=== PATIENT | male | born 1950 | race Caucasian/White ===

== ENCOUNTER 2017-05-08 13:46 | Inpatient (IN) | payer MEDICARE, BC ==
[~2017-05-08] VITALS: Ht 188 cm; Wt 117.9 kg
--- NOTE | ~2017-05-08 | HP ---
PATIENT: ADAM THOMAS MEDICAL RECORD: [id number] ACCOUNT: [id number] LOCATION:D.MS [facility]4 : 46 ADMISSION DATE: 05/08/17 HISTORY AND PHYSICAL EXAMINATION DATE OF ADMISSION: 05/08/2017 CHIEF COMPLAINT: Abdominal pain. HISTORY OF PRESENT ILLNESS: The patient states that for the past week, he has had lower abdominal discomfort, he has had low-grade fever, he has had chills and sweats. One night, he states he had voided 12 times during the night. States he is feeling somewhat better today. PAST MEDICAL HISTORY: His past history is significant that he has had a history of atrial fibrillation. He has had a history of having hypertension, high blood pressure. FAMILY HISTORY: Brother had hypertension. Nephew with diabetes mellitus. Father had heart disease as well as lung cancer. MEDICATIONS: Include aspirin 81 mg once a day, lisinopril 20/12.5 one p.o. every day, meloxicam 15 mg once a day, KCl 10 mEq 1 p.o. every day, simvastatin 20 mg once a day, sotalol 120 mg p.o. b.i.d., warfarin 5 mg 1 p.o. every day. ALLERGIES: He has no known drug allergies. HABITS: The patient is a nonsmoker and nondrinker. SOCIAL HISTORY: The patient is a 2-year college graduate. He is . He is a CPA. REVIEW OF SYSTEMS: CONSTITUTIONAL: He denies any headaches, seizures, or syncope. Denies change in visual or auditory acuity. PULMONARY: He denies any shortness of breath, cough, congestion, history of TB, asthma or bronchitis. CARDIOVASCULAR: No chest pain, palpitation, PND or orthopnea. GASTROINTESTINAL: No chronic nausea, vomiting, melena or hematochezia. GENITOURINARY: No urgency, frequency, or dysuria. PHYSICAL EXAMINATION: VITAL SIGNS: Today, the patient's weight is 264, his blood pressure is 102/56, his pulse is 72, and his respirations are 16. He is afebrile. HEENT: Head is normocephalic. No lesions. Ears: TMs clear. Eyes: Pupils equal, round and reactive to light. His extraocular movements are intact. His nasal cavity, oral cavity, and oropharynx are clear. NECK: Supple. There is no adenopathy. HEART: Has a regular rate and rhythm without murmurs, gallops or rubs. LUNGS: Clear. ABDOMEN: Soft. The patient does have some right lower quadrant tenderness. LABORATORY DATA: He had a urinalysis, which was unremarkable today. White count is also unremarkable. The patient was sent for CT of the abdomen and pelvis, which did show acute appendicitis with perforation. HISTORY AND PHYSICAL [id number] ADAM THOMAS ASSESSMENT: Abdominal pain felt to be secondary to acute appendicitis with perforation, history of atrial fibrillation, hypertension, and hyperlipidemia. PLAN: The patient is admitted. Surgery consultation will be obtained. He will be placed on Invanz 1 gram q.24 hours. We will hold his Coumadin. Continue to evaluate. TRANSINT:[id number] Voice Confirmation ID: [id number] DOCUMENT ID: [id number] DUARTE CASTAÑEDA MD CC: [id number] DICTATION DATE: 05/08/171752 SENIOR DENTIST: 05/08/[address] [facility] [address] [place] [address]
--- NOTE | ~2017-05-08 | PN ---
PATIENT:ADAM THOMAS MEDICAL RECORD: [id number] LOCATION:D.MS [facility] ADMISSION DATE: 05/08/17 PROGRESS NOTE DATE OF SERVICE: 05/10/2017 Progress Note Addendum CHIEF COMPLAINT: Better. The patient is going to have an abscessogram tomorrow. He is tolerating clear liquid diet. He is having only minor pain around the drain injury site. Dr. Bazzi has made recommendations. Palpation aggravates. Nothing alleviates. Symptoms are mild. This is a progress note addendum. For the typed portion of the progress note, please see the chart. This would include the past medical and surgical history, allergies, family history as well as current medications. REVIEW OF SYSTEMS: No nausea, no vomiting, no fever, no chills, no chest pain, no shortness of breath. PHYSICAL EXAMINATION: GENERAL: The patient does not appear acutely ill. He does not appear chronically ill. VITAL SIGNS: Reviewed. HEAD: External ears appear normal. EYES: Extraocular movements are intact. NECK: Trachea is midline. CHEST: No intercostal retractions. PULMONARY: Nonlabored, no stridor. ABDOMEN: Tenderness only at the drain entry site. INTEGUMENT: No rash. PSYCHIATRIC: Normal affect. NEUROLOGIC: Nonfocal, no lethargy. The patient answers questions appropriately, moves all extremities well. BACK: No thoracic kyphosis. LYMPHATIC: No lymphangitic streaking of the exposed extremities. IMPRESSION: Acute appendicitis with perforation and abscess. PLAN: Continued drainage through the CT-guided drain, continue with IV antibiotics. TRANSINT:[id number] Voice Confirmation ID: [id number] DOCUMENT ID: [id number] PROGRESS NOTE [id number] ADAM THOMAS ROBERT MD CC: [id number] DICTATION DATE: 05/11/171733 RETRIMMER: 05/11/17 2316 ADM IN [facility] [address] [place] [address]
--- NOTE | ~2017-05-08 | CN ---
PATIENT NAME:ADAM THOMAS MEDICAL RECORD: [id number] : 46 LOCATION:D.MS [facility]2204 ADMIT DATE: 05/08/17 ACCOUNT: [id number] CONSULTING PHYSICIAN: ERIKA CAMERON MD REFERRING PHYSICIAN: DUARTE CASTAÑEDA MD DATE OF CONSULTATION: 05/08/2017 CHIEF COMPLAINT: Pain. I have personally reviewed this patient's CT images. I have seen and examined the patient. I have discussed this patient with the patient's primary care physician, Dr. Castañeda. The patient states that he started having abdominal pain about a week ago. He states it is very, very mild. On his CT scan, he has what appears to be a phlegmon with an abscess. This is consistent with acute appendicitis. The current treatment of this is to drain the acute appendicitis; keep the patient on oral or IV antibiotics; and then sometime in the future, once the inflammation has decreased, go in either laparoscopically or through an open procedure and remove the diseased appendix. Palpation aggravates. Nothing alleviates. Symptoms are nonradiating. They are mild in intensity. They are not worsening. This is a consultation note addendum. For the typed portion of the consult note, please see the chart. This will include the past medical and surgical history, current medications, allergies, social history, and family history. REVIEW OF SYSTEMS: No nausea. No vomiting. No fever. No chills. Positive for abdominal pain. No chest pain. No shortness of breath. Review of systems is negative other than as is described above. PHYSICAL EXAMINATION: GENERAL: The patient does not appear acutely ill. He does not appear chronically ill. VITAL SIGNS: Reviewed. HEAD: External ears appear normal. EYES: Extraocular movements are intact. NECK: Trachea is midline. CHEST: No intercostal retractions. PULMONARY: Nonlabored. No stridor. ABDOMEN: Right lower quadrant tenderness with guarding over McBurney point. No peritoneal signs. No Rovsing sign. No peritonitis to percussion. EXTREMITIES: No peripheral cyanosis. INTEGUMENT: No rash. No ulcerations. PSYCHIATRIC: Normal affect. NEUROLOGIC: Nonfocal. No lethargy. The patient answers questions appropriately and moves all extremities well. BACK: No thoracic kyphosis. LYMPHATICS: No lymphangitic streaking of the exposed extremities. IMPRESSION: Perforated appendicitis with abscess and phlegmon. PLAN: Interventional radiology-guided drain tomorrow. PICC line. Consult Dr. Bazzi. Start IV antibiotics. Blood cultures times 2. Also IV narcotic CONSULT REPORT [id number] ADAM THOMAS. TRANSINT:[id number] Voice Confirmation ID: [id number] DOCUMENT ID: [id number] ERIKA CAMERON MD CC: [id number] DICTATION DATE: 05/09/171922 TECHNICAL OPERATIONS MANAGER: 05/09/172021 ADM IN [place] [id number] [place] [id number]
--- NOTE | ~2017-05-08 | HEMODYNAMI ---
PATIENT:ADMA THOMAS MEDICAL RECORD: [id number] : 46 LOCATION:Ian.IN [facility]4 ADMISSION DATE: 05/08/17 Generatedon:05/11/201714:40 Patient name: ADAM THOMAS Patient #: [id number] SSN: : 1 09/11/1949 Date of study: 05/11/2017 Page: Of Hemodynamic Procedure Report Patient Data Patient Demographics Procedure consent was obtained First Name: ADAM Gender: Male Last Name: MARTHA : 1950 Patient #: [id number] Age: 66 year(s) Race: Unknown Additional ID: [id number] Contact details Address: [address] [place] [address] [address] State: [place] City: [facility] Zip code: [address] Admission Admission Data Admission Date: 05/08/2017 Admission Time: 16:54 Room #: D.2204 Weight (lbs.): 259 Weight (kg.): 117.48 Procedure Procedure Types Cath Procedure Peripheral Cath Diagnostic Procedure Cath Peripheral Procedure Description Procedure Date Procedure Date: 05/11/2017 Procedure Start Time: 14:32 Procedure Staff Name Function Husam Botello MD Performing Physician Jordin Cartagena RT Scrub Mindy Mccray RN Nurse Charo Colon RT Ship Boss Charo Colon RT Monitor Procedure Data Cath Procedure Fluoroscopy Diagnostic fluoroscopy Total fluoroscopy Time: 0.8 time: 0.8 min min Diagnostic fluoroscopy Total fluoroscopy dose: 81 dose: 81 mGy mGy Contrast Material Contrast Material Type Amount (ml) Isovue 300 15 Procedure Medications Medication Administration Route Dosage Lidocaine 1% added to field 20 Heparin Flush Bag 1 bags (1000units/500ml NS) Hemodynamics Rest Pre Cath Intra NCS Post Cath Medications Time Medication Route Dose Verified Delivered Reason Notes Effe ctiveness by by 14:22:42 Lidocaine 1% added 20ml Mindy Husam for local to vial Mahendra Botello MD anesthetic field RN 14:23:17 Heparin Flush 1 Mindy Mindy used for Bag bags Mahendra Mccray sliver lapper (1000units/500ml RN NS) Procedure Log Time Note 14:15:54 Patient Weight : 259 lbs 14:18:48 Time tracking: Regular hours 14:19:38 Signed procedure consent form obtained from patient. 14:22:42 Lidocaine 1% 20ml vial added to field was administered by Husam Botello MD; for local anesthetic; 14:23:17 Heparin Flush Bag (1000units/500ml NS) 1 bags was administered by Mindy Mccray RN; used for procedure; 14:23:23 Use device set IR Diagnostic 14:23:25 Sterile Angiographic Pack opened to sterile field. 14:23:28 Bag Decanter opened to sterile field. 14:31:24 Physician arrived 14:31:51 --------ALL STOP TIME OUT------ 14:31:52 Final Timeout: patient, procedure, and site verified with staff and physician. All members of the team are in agreement. 14:32:10 Procedure started. 14:32:11 Full Disclosure recording started 14:32:26 Local anesthetic to Abdominal area with Lidocaine 1% by Husam Botello MD.INITIAL ACCESS ONLY 14:33:00 Terumo ANGLE 260cm glide wire opened to sterile field. 14:35:30 STOPCOCK 3-WAY LARGE BORE opened to sterile field. 14:38:21 BAG, DRAINAGE EMPTY 600ML W/TARA opened to sterile field. 14:38:40 Procedure ended.(Physican Out) 14:38:58 Fluoroscopy time 00.80 minutes. 14:39:04 Fluoroscopy dose: 81 mGy 14:39:04 Flurop Dose total: 81 14:39:28 Contrast amount:Isovue 300 15ml. 14:39:31 Sharps counted by scrub and verified by R.N. 14:39:33 Procedure and supply charges have been captured, reviewed, submitted and are correct. Device Usage Item Name Manufacture Quantity Catalog Hospital Part Current Minimal Lot# / Number Charge Number Stock Stock Serial# Code Sterile Cardinal 1 [id number] 5 Angiographic Health Pack Bag Decanter Microtek 1 [id number] 5 [employer] Terumo ANGLE Terumo 1 [id number] 5 260cm glide wire STOPCOCK [facility] 1 [id number] [id number] [id number] 5 [id number] 3-WAY LARGE BORE BAG, Merit 1 [id number] 604656 5 DRAINAGE Medical EMPTY 600ML W/TARA Signature Audit [place] Stage Time Signature Unsigned Intra-Procedure 05/11/2017 Charo Colon 2:40:48 PM RT(R) Signatures Monitor : Charo Colon RT Signature : Date : Time : [facility] [address] [place] [address]
--- NOTE | ~2017-05-08 | PN ---
PATIENT:ADAM THOMAS MEDICAL RECORD: [id number] LOCATION:D.MS [facility] ADMISSION DATE: 05/08/17 PROGRESS NOTE DATE OF SERVICE: 05/09/2017 Progress Note Addendum CHIEF COMPLAINT: Nausea. HISTORY OF PRESENT ILLNESS: The patient had an episode of nausea and vomiting. He is on clear liquids. He has had a CT-guided drain placed today. There was the production of some pus. He is actually having more abdominal pain. He has been febrile as well. Palpation aggravates. Nothing alleviates. Symptoms are mild to moderate of intensity. This is a progress note addendum. For the typed portion of the progress note, which would include the past medical and surgical history, allergies, social history, family history and current medications, please see the chart. REVIEW OF SYSTEMS: Positive for abdominal pain. Positive nausea and vomiting. Positive for fever. No chills, no shortness of breath, no chest pain. Review of systems is negative other than as is described above. PHYSICAL EXAMINATION: GENERAL: The patient does not appear acutely ill. He does not appear chronically ill. VITAL SIGNS: Reviewed. EARS: External ears appear normal. EYES: Extraocular movements are intact. NECK: Trachea is midline. CHEST: No intercostal retractions. PULMONARY: Nonlabored, no stridor. ABDOMEN: Right lower quadrant tenderness with guarding. EXTREMITIES: No peripheral cyanosis. INTEGUMENT: No rash, no ulcerations. PSYCHIATRIC: Normal affect. NEUROLOGIC: Nonfocal, no lethargy. The patient answers questions appropriately, moves all extremities well. BACK: No thoracic kyphosis. LYMPHATIC: No lymphangitic streaking of the exposed extremities. IMPRESSION: Acute appendicitis with perforation. PLAN: I have read Dr. Bazzi's notes. We are going to hold off on a midline or a PICC line for now. The patient may be able to be converted to oral antibiotics. He has had an episode of nausea and vomiting. He states that the feeling of being nauseated went away, almost immediately after he vomited. From my standpoint once the patient is afebrile and can tolerate a diet as well as oral antibiotics, he can be dismissed home. TRANSINT:[id number] Voice Confirmation ID: [id number] DOCUMENT ID: [id number] PROGRESS NOTE [id number] ADAM THOMAS ROBERT MD CC: [id number] DICTATION DATE: 05/09/171925 DIRECTOR OF GRANTS: 05/10/17 0236 ADM IN [facility] [address] [facility]
--- NOTE | ~2017-05-08 | PN ---
PATIENT:KALEB THOMAS MEDICAL RECORD: [id number] LOCATION:D.MS [facility] ADMISSION DATE: 05/08/17 PROGRESS NOTE DATE OF SERVICE: 05/11/2017 Progress Note Addendum CHIEF COMPLAINT: Fistula. I was called by Dr. Botello, the interventional radiologist. I was told that during the abscessogram, there was some dye that flowed into the small bowel. This would therefore demonstrate a fistula. We have gone over the CT images. This does not appear to be iatrogenic. It appears that the patient likely does not have acute appendicitis with perforation and phlegmon and an abscess, but instead has Crohn's disease. He is certainly not at an age where a person would normally develop Crohn's disease. I have explained to him the pathophysiology of Crohn's disease as well as options including the medical option, maintaining n.p.o., total parenteral nutrition, octreotide, and IV antibiotics. Alternatively, we could send him home this as this is a low output fistula and there is no bowel or enteral contents within the drainage on oral antibiotics. I will then plan on performing a right hemicolectomy hopefully laparoscopically, in about 4 weeks. I have discussed this case with Dr. Baugh who is low emission automobile designer for Dr. Kay. I have also discussed this case with Dr. Bazzi in the interventional radiologist, Dr. Botello. I have drawn Kaleb some pictures. I spent a good bit of time answering his questions. This is a progress note addendum. For the typed portion of the progress note including the past medical and surgical history, allergies, social history as well as current medications, please see the chart. REVIEW OF SYSTEMS: No nausea, no vomiting, no fever, no chills. Positive for abdominal pain, but only at the catheter entry site. PHYSICAL EXAMINATION: GENERAL: The patient does not appear acutely ill. He does not appear chronically ill. VITAL SIGNS: Reviewed. HEAD: External ears appear normal. EYES: Extraocular movements are intact. NECK: Trachea is midline. CHEST: No intercostal retractions. PULMONARY: Nonlabored, no stridor. ABDOMEN: No peritonitis with movement. INTEGUMENT: No rash. PSYCHIATRIC: Normal affect. NEUROLOGIC: Nonfocal, no lethargy. The patient answers questions appropriately, moves all extremities well. BACK: No thoracic kyphosis. LYMPHATIC: No lymphangitic streaking of the exposed extremities. 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 PROGRESS NOTE [id number] KALEB THOMAS PLAN: A 10 days to 2 weeks of oral antibiotics. Narcotic analgesia. Low roughage diet. I have explained this to the patient. I have told him what foods I want him to avoid. Then, in the interval right colectomy, hopefully done laparoscopically, in about 4 weeks. TRANSINT:[id number] Voice Confirmation ID: [id number] DOCUMENT ID: [id number] ERIKA CAMERON MD CC: [id number] DICTATION DATE: 05/11/17 173 PERSONAL INJURY ATTORNEY: 05/11/17 3937 ADM IN [facility] [address] [place] [id number]
[~2017-05-08 13:46] MED LIST: BAYER CHEWABLE81 MG PO; BENICAR HCT 20-1 TA1 PO; BETAPACE 80 MG80 MG PO; COUMADIN5 MG PO; COUMADIN7.5 MG PO; FISH OIL 1,0001 CA1 PO; KLOR-CON 1010 MEQ PO; MULTIPLE VITAMI1 TA1 PO; VITAMIN E200 UNI2 PO; ZOCOR20 MG PO
--- NOTE | 2017-05-08 18:00 | NUR ---
PATIENT TO ROOM AT THIS TIME. IV INTACT. STATED HE WAS OVER AT DR. CASTAÑEDA OFFICE AND SENT HERE TO DO CT SCAN. IV WAS PLACED AND THEN SENT BACK TO [facility] OFFICE THEN SENT OVER HERE. ORIENTED PATIENT TO ROOM AND CALL LIGHT. CALL LIGHT WITHIN REACH. AT THIS TIME. WILL CONTINUE TO MONITOR.
[2017-05-08 18:09] LABS: BASOPHILS 0.3 % (0-2); EOSINOPHILS 0.6 % (0-7); HEMATOCRIT 40.5 % (42.0-54.0); HEMOGLOBIN 13.9 g/dL (13.5-17.5); IMMATURE GRANULOCYTES 0.4 % (0-5); MCH 29.6 pg (26.0-34.0); MCHC 34.3 g/dL (31.0-37.0); MCV 86.4 fL (80.0-100.0); MEAN PLATELET VOLUME 11.7 fL (7.4-10.4); MONOCYTES 16.2 % (2-11); NEUTROPHILS 68.5 % (40-80); RBC 4.69 10x6/uL (4.20-6.10); RDW 13.6 % (11.5-14.5); WBC 9.1 10x3/uL (4.8-10.8)
[2017-05-08 18:16] LABS: INR 1.78 (0.85-1.17); PROTIME 20.7 SECONDS (11.6-15.0)
[2017-05-08 18:21] LABS: CALCIUM 8.4 mg/dL (8.5-10.1); CARBON DIOXIDE 26.9 mmol/L (21.0-32.0); CREATININE - SERUM 1.2 mg/dL (0.6-1.3); POTASSIUM - SERUM 3.9 mmol/L (3.5-5.1)
[2017-05-08 18:46] LABS: PLATELET COUNT 175 10x3/uL (130-400)
[2017-05-08 19:00] VITALS: BP 143/93
--- NOTE | 2017-05-08 19:25 | NUR ---
RECIEVED SHIFT REPORT. PT IS LYING IN BED. ALERT AND ORIENTED AND ABLE TO VERBALIZE NEEDS. IV IS PATENT AND SALINE LOC AT THIS TIME. PT IS AMBULATORY BUT WAS INSTRUCTED TO CALL FOR ANY ASSISTANCE NEEDED. PT DENIES ANY PAIN AT THIS TIME. NO NEEDS ARE VERBALIZED AT THIS TIME. WILL CONTINUE TO MONITOR. SIDE RAILS ARE UP X 2. BED IS IN LOWEST POSITION. CALL LIGHT IS WITHIN REACH.
--- NOTE | 2017-05-08 21:17 | NUR ---
ADMIT ASSESSMENT COMPLETED. FLUIDS HOOKED UP PER ORDER. NIGHT MEDS GIVEN WITH NO PROBLEMS. PRN TYLENOL ADMINISTERED PER ORDER FOR MPCY=202.3. NO NEEDS ARE VOICED. WILL MONITOR. SIDE RAILS X 2. BED LOW. CALL LIGHT IN REACH.
[2017-05-08 23:01] VITALS: BP 143/93; BMI 33.4
[2017-05-09] VITALS (12 sets, daily range): BP systolic 128–148; BP diastolic 66–92; Ht 188 cm; Wt 117.9 kg
--- NOTE | 2017-05-09 04:36 | NUR ---
ADMINISTERED PRN TYLENOL FOR FEVER OF 89.
[2017-05-09 05:33] LABS: APPEARANCE CLEAR (CLEAR); COLOR YELLOW (YELLOW); GLUCOSE NEGATIVE (NEGATIVE); KETONE SMALL mg/dL (NEGATIVE); LEUKOCYTE ESTERASE NEGATIVE (NEGATIVE); NITRITE NEGATIVE (NEGATIVE); PROTEIN TRACE mg/dL (NEGATIVE); SPECIFIC GRAVITY 1.015 (1.005-1.020); UROBILINOGEN NORMAL (NORMAL)
[2017-05-09 05:34] LABS: BILIRUBIN NEGATIVE (NEGATIVE)
[2017-05-09 05:35] LABS: BACTERIA MODERATE /hpf (NONE SEEN); EPITHELIAL CELLS 0-5 /hpf (0-5); MUCUS <1+ /lpf (NONE SEEN); RED CELLS - URINE 0-5 /hpf (0-5); WHITE CELLS - URINE 0-5 /hpf (0-5)
[2017-05-09 05:37] LABS: BASOPHILS 0.3 % (0-2); EOSINOPHILS 0.4 % (0-7); HEMOGLOBIN 13.8 g/dL (13.5-17.5); IMMATURE GRANULOCYTES 0.2 % (0-5); LYMPHOCYTES 10.2 % (15-50); MCH 29.2 pg (26.0-34.0); MCHC 33.7 g/dL (31.0-37.0); MCV 86.7 fL (80.0-100.0); MEAN PLATELET VOLUME 12.1 fL (7.4-10.4); MONOCYTES 19.1 % (2-11); NEUTROPHILS 69.8 % (40-80); PLATELET COUNT 164 10x3/uL (130-400); RBC 4.73 10x6/uL (4.20-6.10); RDW 13.4 % (11.5-14.5); WBC 9.4 10x3/uL (4.8-10.8)
[2017-05-09 06:04] LABS: ANION GAP 14.3 mmol/L (8-16); CALCIUM 8.9 mg/dL (8.5-10.1); CARBON DIOXIDE 25.2 mmol/L (21.0-32.0); CREATININE - SERUM 1.1 mg/dL (0.6-1.3); POTASSIUM - SERUM 3.5 mmol/L (3.5-5.1)
--- NOTE | 2017-05-09 07:05 | NUR ---
RECIEVED REPORT, ASSUMED CARE OF PT. NO SIGNS OF ACUTE DISTRESS. BED IN LOWEST POSITION, SIDE RAILS UP X 2, CALL LIGHT WITHIN REACH.
[2017-05-09 09:10] LABS: APTT 34.3 SECONDS (22.8-39.4); INR 1.84 (0.85-1.17); PROTIME 21.3 SECONDS (11.6-15.0)
--- NOTE | 2017-05-09 11:19 | NUR ---
Patient Name: ADAM THOMAS Admission Status: Elective Accout number: [id number] Admission Date: 05-08-2017 : 1950 Admission Diagnosis: Attending: DUARTE CASTAÑEDA Current LOS: 1 Anticipated DC Date: Planned Disposition: Home Primary Insurance: MEDICARE A & B Discharge Planning Comments: CM met with patient to assess discharge planning needs. Patient lives independently at home by himself and that is where he plans to return. Patient stated that he plans on driving himself home at time of discharge. Patient does have a son (Duarte). Patient denies any HH or DME use, but if he needs HH he would like to use [facility], AMALIA signed. CM will continue to follow and assist with discharge planning needs PCP: Rahul Bledsoe (SON) [phone] [facility] [place] and Phd Internship: Dana Horne * Is the patient Alert and Oriented? Yes 0 * How many steps to enter\exit or inside your home? 0 0 * PCP Rahul 0 * Pharmacy [facility] on [address] 0 * Preadmission Environment Home Alone 0 * ADLs Independent 0 * Equipment None 0 * List name and contact numbers for known caregivers / representatives who currently or will assist patient after discharge: Duarte (son) [phone] * Community resources currently utilized None 0 * Additional services required to return to the preadmission environment? No 0 * Can the patient safely return to the preadmission environment? Yes 0 * Has this patient been hospitalized within the prior 30 days at any hospital? No 0 Grand Total: 0
--- NOTE | 2017-05-09 12:50 | NUR ---
PT TRANSPORTED TO IR FOR PROCEDURE.
--- NOTE | 2017-05-09 13:55 | NUR ---
PT RETURNED TO FLOOR FROM PERITONEAL DRAIN, RLQ BILIBAG IN PLACE, DRSG C/D/I. VSS. NO COMPLAINTS AT THIS TIME. BED IN LOWEST POSITION, SIDE RAILS UP X 2, CALL LIGHT WITHIN REACH.
--- NOTE | 2017-05-09 19:07 | NUR ---
PT IS LYING ON RT SIDE, EYES CLOSED EVEN RISE AND FALL OF CHEST. NO SIGNS OF DISTRESS, BED IN LOW POSITION CALL LIGHT IN REACH CONTINUE WITH CARE PLAN
--- NOTE | 2017-05-09 19:58 | NUR ---
PT RESTING IN BED, NO COMPLAINTS AT THIS TIME. BED IN LOWEST POSITION, SIDE RAILS UP X 2, CALL LIGHT WITHIN REACH.
--- NOTE | 2017-05-09 20:22 | NUR ---
SUPERVISOR PHOTOCOMPOSITION CAME AND REPORTED PT TEMP IS 102.2, GAVE PT 650MG OF TYLENOL, PT STATED FELT FINE, COVERED PT WITH SHEET, WILL REASSESS TEMP IN 30MINS
--- NOTE | 2017-05-09 21:39 | NUR ---
PT TEMP IS DOWN TO 98 WILL CONTINUE TO MONITOR PT THROUGH OUT THE NIGHT
[2017-05-10 04:00] VITALS: BP 131/77
[2017-05-10 05:11] LABS: BASOPHILS 0.2 % (0-2); EOSINOPHILS 0.1 % (0-7); HEMATOCRIT 38.4 % (42.0-54.0); HEMOGLOBIN 13.1 g/dL (13.5-17.5); IMMATURE GRANULOCYTES 0.2 % (0-5); LYMPHOCYTES 11.6 % (15-50); MCH 29.4 pg (26.0-34.0); MCHC 34.1 g/dL (31.0-37.0); MCV 86.1 fL (80.0-100.0); MEAN PLATELET VOLUME 11.6 fL (7.4-10.4); MONOCYTES 13.6 % (2-11); NEUTROPHILS 74.3 % (40-80); PLATELET COUNT 186 10x3/uL (130-400); RBC 4.46 10x6/uL (4.20-6.10); RDW 13.4 % (11.5-14.5)
[2017-05-10 05:21] LABS: INR 2.35 (0.85-1.17); PROTIME 25.8 SECONDS (11.6-15.0)
[2017-05-10 05:29] LABS: CALCIUM 8.2 mg/dL (8.5-10.1); CARBON DIOXIDE 28.6 mmol/L (21.0-32.0); CREATININE - SERUM 1.1 mg/dL (0.6-1.3); POTASSIUM - SERUM 3.6 mmol/L (3.5-5.1)
--- NOTE | 2017-05-10 05:39 | NUR ---
ASSESSED, PT IS AWAKE AND HE IS UNABLE TO GET HIS TV TO COME ON. WILL PUT IN A WORK ORDER. RESPIRATIONS EVEN AND UNLABORED, NO DISTRESS NOTED. THE BED IS LOW, RAILS UP X'S 2 WITH THE CALL LIGHT AT HAND.
--- NOTE | 2017-05-10 07:05 | NUR ---
REPORT RECIVED, ASSUMED CARE OF PT. RESTING, EASILY AROUSED. NO SIGNS OF ACUTE DISTRESS. BED IN LOWEST POSITION, SIDE RAILS UP X 2, CALL LIGHT WITHIN REACH.
--- NOTE | 2017-05-10 09:00 | NUR ---
PT ACCIDENTALLY PULLED L AC IV OUT. BLEED CONTROL, BANDAGE APPLIED. IV RE-SITED TO L FOREARM, TOLERATED WITH MINIMAL DISCOMFORT. DRSG APPLIED. FLUIDS INFUSING ORDERED.
[2017-05-10 09:46] VITALS: BP 144/80
[2017-05-10 12:55] VITALS: BP 128/84
[2017-05-10 16:42] VITALS: BP 119/82
--- NOTE | 2017-05-10 19:11 | NUR ---
PT IS SITTING IN BED WATCStowThat TELEVISION, SSTATED ABLE TO EAT NOW WHICH PT IS ON CLEAR LIQUID DIET AND HAD CHICKEN BROTH, NO SIGNS OF DISTRESS BED IN LOW POSITION, CALL LIGHT IN REACH WILL CONTINUE PLAN OF CARE
[2017-05-10 20:20] VITALS: BP 120/82
--- NOTE | 2017-05-10 22:10 | NUR ---
FLUSHED BILI DRAIN, NO COMPLICATIONS, FLUSED EASILY. SITE IS CLEAN, DRY AND INTACT. CONTINUE WITH PLAN OF CARE
[2017-05-11 00:40] VITALS: BP 126/86
--- NOTE | 2017-05-11 01:20 | NUR ---
RESTING QUIETLY WITH EYES CLOSED. NO SIGNS OF DISTRESS NOTED. BED IN LOWEST POSITION, CALL LIGHT IN REACH. BED RAILS UP X'S 2.
[2017-05-11 04:56] VITALS: BP 151/91
[2017-05-11 05:00] LABS: BASOPHILS 0.3 % (0-2); EOSINOPHILS 1.4 % (0-7); HEMATOCRIT 38.5 % (42.0-54.0); HEMOGLOBIN 13.1 g/dL (13.5-17.5); IMMATURE GRANULOCYTES 0.1 % (0-5); LYMPHOCYTES 16.9 % (15-50); MCH 29.1 pg (26.0-34.0); MCV 85.6 fL (80.0-100.0); MEAN PLATELET VOLUME 11.3 fL (7.4-10.4); MONOCYTES 11.8 % (2-11); NEUTROPHILS 69.5 % (40-80); PLATELET COUNT 189 10x3/uL (130-400); RDW 13.4 % (11.5-14.5); WBC 7.3 10x3/uL (4.8-10.8)
[2017-05-11 05:10] LABS: PROTIME 30.5 SECONDS (11.6-15.0)
[2017-05-11 05:12] LABS: INR 2.9 (0.85-1.17)
[2017-05-11 05:15] LABS: CALC OSMOLALITY 281 mosm/kg (275-300); CALCIUM 7.9 mg/dL (8.5-10.1); CARBON DIOXIDE 28.4 mmol/L (21.0-32.0); CHLORIDE - SERUM 104 mmol/L (98-107); GLUCOSE 109 mg/dL (74-106); POTASSIUM - SERUM 3.6 mmol/L (3.5-5.1); SODIUM 140 mmol/L (136-145); UREA NITROGEN 19 mg/dL (7-18); eGFR NON AFRICAN AMERICAN 79 mL/min (90-120)
--- NOTE | 2017-05-11 07:00 | NUR ---
REPORT RECIEVED, ASSUMED CARE OF PT. RESTING, EASILY AROUSED. L FOREARM IV INTACT, PATENT, INFUSING ORDERED, DRSG CLEAN, DRY AND INTACT. RLQ DRAIN WITH BILI BAG IN PLACE. NO COMPLAINTS AT THIS TIME. BED IN LOWEST POSITION, SIDE RAILS UP X 2, CALL LIGHT WITHIN REACH.
[2017-05-11 09:39] VITALS: BP 136/93
--- NOTE | 2017-05-11 10:06 | NUR ---
NUTRITION F/U CHART REVIEWED. PT CURRENTLY NPO FOR PROCEDURE TODAY. WILL PROVIDE DIET WHEN RESUMED. MONITOR PO INTAKE. RD FOLLOWING
[2017-05-11 13:06] VITALS: BP 139/91
--- NOTE | 2017-05-11 14:03 | NUR ---
PT LEFT FLOOR FOR DRAIN CHECK AND POSSIBLE REMOVAL.
[2017-05-11 16:59] VITALS: BP 136/104
[2017-05-11 20:00] VITALS: BP 136/83
--- NOTE | 2017-05-11 21:19 | NUR ---
AWAKE WITH NO COMPLAINTS. IV INFUSING TO LEFT ARM WITHOUT REDNESS OR EDEMA NOTED. ABD SOFT NONDISTENDED WITH BOWEL SOUNDS PRESENT. CL IN REACH.
[2017-05-12 00:08] VITALS: BP 146/98
--- NOTE | 2017-05-12 02:27 | NUR ---
ASSESSED, PT IS ASLEEP WITH EASY RESPIRATIONS AND NO SIGNS OF DISTRESS NOTED. THE BED IS LOW, RAILS UP X'S 2 WITH THE CALL LIGHT AT HAND.
--- NOTE | 2017-05-12 05:40 | NUR ---
RESTING QUIETLY. NO DISTRESS NOTED. CL IN REACH.
--- NOTE | 2017-05-12 07:00 | NUR ---
PT REC'D FROM RACQUEL ROBERTS. PT SITTING UP IN BED WATCHING TV. AAOX4. NO COMPLAINTS OF PAIN. BOWEL SOUNDS ACTIVE X4 QUADS. DRESSING COVERING BILI DRAIN TO RLQ CDI. SCANT AMOUNT OF SEROSANGUINOUS DRAINAGE NOTED TO COLLECTION BAG. PT ASKING WHEN HE WILL GO HOME. STATED THAT I HAD NOT SEEN THE DOCTOR YET THIS MORNING, BUT WHEN I DO I WILL ASK. NO QUESTIONS OR CONCERNS VOICED. PIV TO L FA FREE OF REDNESS AND SWELLING. BED LOW, CALL LIGHT IN REACH, DENIES NEEDS. CPOC.
[2017-05-12 08:03] VITALS: BP 157/97
[2017-05-12] MEDS ORDERED: LEVAQUIN750 MG PO (09:54)
[2017-05-12] MEDS ORDERED: FLAGYL500 MG PO (09:54)
[2017-05-12 12:42] VITALS: BP 137/94
--- NOTE | 2017-05-12 14:01 | NUR ---
DISCHARGE INSTRUCTIONS DISCUSSED WITH PT AT THIS TIME. NO QUESTIONS OR CONCERNS VOICED. BILIARY DRAIN FLUSHED WITH 10CC'S OF SALINE AT THIS TIME. EXPLAINED TO PT HOW TO FLUSH DRAIN AND CHANGE DRESSING IF NEEDED. PT ABLE TO RETURN DEMONSTRATION. PIV TO Marco Antonio NELSON DC'D WITH CATHETER INTACT. PRESSURE AND DRESSING APPLIED. PROVIDED PT WITH LEG STRAP FOR COLLECTION BAG. ESCORTED OUT VIA WC.
== END 2017-05-12 14:08 | disposition home or self-care, planned readmission (81) | DRG 393 ==
LOC: D.CT 13:46 → D.MS 16:54 → D.CT 18:00 → D.MS 05-12 14:08
PROVIDERS: Radiology Diagnostic Radiology; ADMIT Family Medicine
PROC: 0D9W30Z Drainage of Peritoneum with Drainage Device, Percutaneous Approach (ICD-10-PCS; principal; 2017-05-09 13:00)
DX: K63.2 Fistula of intestine (principal); K65.1 Peritoneal abscess; I10 Essential (primary) hypertension; I48.0 Paroxysmal atrial fibrillation; Z79.01 Long term (current) use of anticoagulants

== ENCOUNTER 2017-05-21 10:30 | Inpatient (IN) | payer MEDICARE, BC ==
[~2017-05-21 10:30] MED LIST changes: +FLAGYL500 MG PO; +LEVAQUIN750 MG PO; -VITAMIN E200 UNI2 PO; +VITAMIN E400 UNI2 PO
--- NOTE | 2017-05-21 10:50 | NUR ---
PT RECIEVED TO ROOM 2202 VIA WHEELCHAIR FROM ADMISSIONS VIA DIRECT ADMISSION FROM DR CASTAÑEDA OFFICE FOR COMPLAINTS OF BLOODY STOOLS OVER THE WEEKEND PIV STARTED TO RIGHT FORARM X 1 STICK 20 GA TOLERATED WELL.
[2017-05-21 11:17] VITALS: BP 117/71
--- NOTE | 2017-05-21 11:26 | NUR ---
pt seen and admitted. no complaints present except for passing bloody stools x 3 days. ir drain noted to rlq with dressing intact-bloody fluid noted in bag. states no tenderness or n/v. call light in reach
[2017-05-21 11:38] VITALS: BP 117/71
[2017-05-21 11:39] LABS: BASOPHILS 0.7 % (0-2); EOSINOPHILS 1.1 % (0-7); HEMATOCRIT 30.4 % (42.0-54.0); HEMOGLOBIN 10.1 g/dL (13.5-17.5); IMMATURE GRANULOCYTES 0.3 % (0-5); MCHC 33.2 g/dL (31.0-37.0); MCV 87.4 fL (80.0-100.0); MEAN PLATELET VOLUME 11.9 fL (7.4-10.4); MONOCYTES 4.4 % (2-11); NEUTROPHILS 78.5 % (40-80); PLATELET COUNT 223 10x3/uL (130-400); RBC 3.48 10x6/uL (4.20-6.10); RDW 14.4 % (11.5-14.5); WBC 7.1 10x3/uL (4.8-10.8)
[2017-05-21 11:50] LABS: ANION GAP 10.5 mmol/L (8-16); CALCIUM 8.1 mg/dL (8.5-10.1); CARBON DIOXIDE 26.5 mmol/L (21.0-32.0); CREATININE - SERUM 1.1 mg/dL (0.6-1.3)
[2017-05-21 12:15] LABS: INR 6.16 (0.85-1.17); PROTIME 55.8 SECONDS (11.6-15.0)
--- NOTE | 2017-05-21 13:30 | NUR ---
NEW ORDER RECIEVED FROM DR CASTAÑEDA FOR FFP X 2 UNITS AND 10 VITAMIN K SQ FOR CRITICAL LAB OF INR 6.1 AND PT 55.8
--- NOTE | 2017-05-21 15:38 | NUR ---
PT RETURNED FROM BLEED SCAN EARLIER AND VITAMIN K GIVEN SQ PER ORDER.
[2017-05-21 15:45] VITALS: BP 130/73
--- NOTE | 2017-05-21 16:37 | NUR ---
FFP INFUSING AT THIS TIME TOLERATING WELL
[2017-05-21 17:23] LABS: HEMATOCRIT 26.3 % (42.0-54.0); HEMOGLOBIN 8.8 g/dL (13.5-17.5)
--- NOTE | 2017-05-21 19:20 | NUR ---
RECIEVED SHIFT REPORT. PT IS LYING IN BED. ALERT AND ORIENTED AND ABLE TO VERBALIZE NEEDS. IV IS PATENT AND FLUIDS ARE RUNNING PER ORDER. PT IS AMBULATORY BUT WAS INSTRUCTED TO CALL FOR ANY ASSISTANCE NEEDED. PT DENIES ANY PAIN AT THIS TIME. IR DRAIN TO RIGHT SIDE PATENT AND DRAINING WITH SITE C/D/I. NO NEEDS ARE VERBALIZED AT THIS TIME. WILL CONTINUE TO MONITOR. SIDE RAILS ARE UP X 2. BED IS IN LOWEST POSITION. CALL LIGHT IS WITHIN REACH.
--- NOTE | 2017-05-21 21:45 | NUR ---
SHIFT ASSESSMENT COMPLETED. NIGHT MEDS GIVEN WITH NO PROBLEMS. NO NEEDS ARE VOICED. WILL MONITOR. SIDE RAILS X 2. BED LOW. CALL LIGHT IN REACH.
[2017-05-21 22:22] VITALS: BP 123/04
[2017-05-21 23:44] LABS: HEMATOCRIT 24.5 % (42.0-54.0); HEMOGLOBIN 8.2 g/dL (13.5-17.5)
[2017-05-22] VITALS (17 sets, daily range): BP systolic 96–132; BP diastolic 52–88; BMI 33.4
--- NOTE | 2017-05-22 00:50 | NUR ---
PRBC'S STARTED AT THIS TIME. VSS. WILL MONITOR.
--- NOTE | 2017-05-22 01:05 | NUR ---
PT W/O REACTION AT THIS TIME. VSS. WILL MONITOR.
--- NOTE | 2017-05-22 01:20 | NUR ---
PT STILL W/O REACTION AT THIS TIME. VSS. WILL MONITOR. SIDE RAILS X 2. BED LOW. CALL LIGHT IN REACH.
--- NOTE | 2017-05-22 03:25 | NUR ---
BLOOD FINISHED AND TUBE FLUSHING AT THIS TIME. PT REMAINED W/O REACTION. VSS. WILL MONITOR. SIDE RAILS X 2. BED LOW. CALL LIGHT IN REACH.
[2017-05-22 04:14] LABS: EOSINOPHILS 1.8 % (0-7); HEMATOCRIT 26.6 % (42.0-54.0); IMMATURE GRANULOCYTES 0.4 % (0-5); LYMPHOCYTES 23.1 % (15-50); MCH 29.1 pg (26.0-34.0); MCHC 33.8 g/dL (31.0-37.0); MCV 86.1 fL (80.0-100.0); MEAN PLATELET VOLUME 12.4 fL (7.4-10.4); NEUTROPHILS 65.7 % (40-80); RBC 3.09 10x6/uL (4.20-6.10); RDW 14.8 % (11.5-14.5)
[2017-05-22 04:17] LABS: INR 2.78 (0.85-1.17); PLATELET COUNT 139 10x3/uL (130-400); PROTIME 29.5 SECONDS (11.6-15.0); WBC 5.1 10x3/uL (4.8-10.8)
[2017-05-22 04:18] LABS: CALCIUM 7.4 mg/dL (8.5-10.1); CARBON DIOXIDE 25.9 mmol/L (21.0-32.0); CHLORIDE - SERUM 110 mmol/L (98-107); GLUCOSE 106 mg/dL (74-106); POTASSIUM - SERUM 3.6 mmol/L (3.5-5.1); SODIUM 142 mmol/L (136-145)
[2017-05-22 04:19] LABS: CALC OSMOLALITY 285 mosm/kg (275-300); CREATININE - SERUM 0.8 mg/dL (0.6-1.3); UREA NITROGEN 21 mg/dL (7-18); eGFR NON AFRICAN AMERICAN > 90 mL/min (90-120)
--- NOTE | 2017-05-22 06:51 | HP ---
PATIENT: ADAM THOMAS MEDICAL RECORD: [id number] ACCOUNT: [id number] LOCATION:D.MS [facility] : 48 ADMISSION DATE: 05/21/17 HISTORY AND PHYSICAL EXAMINATION DATE OF ADMISSION: 05/21/2017 CHIEF COMPLAINT: Rectal bleeding. HISTORY OF PRESENT ILLNESS: The patient is a 66-year-old gentleman who had recently been hospitalized for perforated appendix. He had had an abscess drained. He also has a drain in place. He states, on Sunday, he developed bright red blood per rectum. Since that time, he has had numerous stools. He presents complaining of being extremely weak today. PAST MEDICAL HISTORY: His past history is significant in that he has had chronic atrial fibrillation. He has had hypertension. He has had hyperlipidemia, vitamin D deficiency, and history of diverticulitis in the past. FAMILY HISTORY: Brother with history of having high blood pressure. Mother had hyperlipidemia. Father had heart disease, of lung cancer at 73. 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 He has never smoked. Occasional alcoholic beverage. PAST SURGICAL HISTORY: He had had a colonoscopy in 2006 and 2014. ALLERGIES: None. MEDICATIONS: Include aspirin 81 mg once a day, Levaquin 750 mg once a day, lisinopril 20/12.5 one p.o. daily, meloxicam 15 mg once a day, Flagyl 500 mg p.o. t.i.d., KCl 10 mEq one p.o. daily, simvastatin 20 mg once a day, sotalol 120 mg p.o. b.i.d., and warfarin 5 mg p.o. b.i.d. REVIEW OF SYSTEMS: CONSTITUTIONAL: He denies any headache, seizure, or syncope. He denies change in visual or auditory acuity. PULMONARY: He denies any shortness of breath, cough, congestion, or history of bronchitis. CARDIOVASCULAR: He has had no chest pain, palpitation, PND, or orthopnea. GI: No chronic nausea, vomiting, melena, or hematochezia. URINARY: No urinary frequency or dysuria. PHYSICAL EXAMINATION: GENERAL: The patient is very pale in color. VITAL SIGNS: His weight is 258 pounds. His blood pressure is 88/46, pulse 84, respirations 16, and temperature is 98. HEENT: His head is normocephalic. No lesions. Ears; TMs are clear. Eyes; pupils are equal, round, and reactive to light. His extraocular movements are intact. Nasal cavity, oral cavity, and oropharynx clear. NECK: Supple. There is no adenopathy. HEART: Mildly irregular. LUNGS: Clear. ABDOMEN: Soft and nontender. He does have a drain in the right lower quadrant. RECTAL: Shows stool guaiac to be positive. HISTORY AND PHYSICAL [id number] ADAM THOMAS LABORATORY DATA: White count 7.2, hemoglobin 10.6, hematocrit 32.3, and his platelets are 272. ASSESSMENT: Lower GI bleeding, history of atrial fibrillation, history of perforated appendix with abdominal abscess with drain placed. PLAN: The patient is admitted. Serial H&Hs will be obtained. Transfusion as needed. He will have a bleeding scan. He will also have a GI consultation for possible colonoscopy. TRANSINT:[id number] Voice Confirmation ID: [id number] DOCUMENT ID: [id number] DUARTE CASTAÑEDA MD at 0651 CC: [id number] DICTATION DATE: 05/21/17 1136 CLINICAL PHARMACIST: 05/21/17 1212 ADM IN [facility] [address] [place] [address]
--- NOTE | 2017-05-22 07:00 | NUR ---
REPORT RECIEVED ASSUMED CARE. PATIENT IN BED WITH IV INTACT. NO COMPLAINTS. CALL LIGHT WITHIN REACH.
--- NOTE | 2017-05-22 09:15 | NUR ---
PATIENT PREOPED FOR COLONOSCOPY AT THIS TIME. NO COMPLAINTS. IV INTACT. CALL LIGHT WITHIN REACH.
[2017-05-22 12:52] LABS: HEMOGLOBIN 8.7 g/dL (13.5-17.5)
--- NOTE | 2017-05-22 14:00 | NUR ---
PATIENT BACK TO ROOM AT THIS TIME. IV INTACT. NO COMPLAINTS. VS STABLE. SITTING UP WITH EYES OPEN. CALL LIGHT WITHIN REACH.
--- NOTE | 2017-05-22 16:59 | NUR ---
Patient Name: ADAM THOMAS Admission Status: Elective Accout number: [id number] Admission Date: 05-21-2017 : 1950 Admission Diagnosis: Attending: DUARTE CASTAÑEDA Current LOS: 1 Anticipated DC Date: Planned Disposition: Home Primary Insurance: MEDICARE A & B Discharge Planning Comments: CM met with patient to assess discharge planning needs . Patient lives home alone independently where he plans to return to. He states he ahs a son Anthony. He does not have and DME or HH and not sure he will need it when her returns home. CM will continue to follow and assist with discharge planning needs. PCP: Rahul Bledsoe (son) [phone] [facility] [address] [facility] Mechanical Maintenance Technician: Dana Horne * Is the patient Alert and Oriented? Yes 0 * PCP [facility] 0 * Pharmacy [facility] [address] [facility] 0 * Preadmission Environment Home Alone 0 * ADLs Independent 0 * Equipment None 0 * List name and contact numbers for known caregivers / representatives who currently or will assist patient after discharge: Duarte (son) [phone] 0 * Community resources currently utilized None 0 * Additional services required to return to the preadmission environment? Yes 0 * Can the patient safely return to the preadmission environment? Yes 0 * Has this patient been hospitalized within the prior 30 days at any hospital? Yes 0 Grand Total: 0
[2017-05-22 17:11] LABS: HEMATOCRIT 25.9 % (42.0-54.0); HEMOGLOBIN 8.6 g/dL (13.5-17.5)
--- NOTE | 2017-05-22 18:18 | NUR ---
PATIENT IN BED WITH IV INTACT. NO COMPLAINTS OR SIGNS OF DITRESS. TOLERATED CLEARS. NPO P MN. VERBALIZED UNDERSTANDING. CALL LIGHT WITHIN REACH.
--- NOTE | 2017-05-22 19:15 | NUR ---
RECIEVED SHIFT REPORT. PT IS LYING IN BED. ALERT AND ORIENTED AND ABLE TO VERBALIZE NEEDS. IV IS PATENT AND FLUIDS ARE RUNNING PER ORDER. PT DENIES ANY PAIN AT THIS TIME. PT IS AMBULATORY BUT WAS INSTRUCTED TO CALL FOR ANY ASSISTANCE NEEDED. NO NEEDS ARE VERBALIZED AT THIS TIME. WILL CONTINUE TO MONITOR. SIDE RAILS ARE UP X 2. BED IS IN LOWEST POSITION. CALL LIGHT IS WITHIN REACH.
--- NOTE | 2017-05-22 20:41 | NUR ---
CALLED PHARMACY TO QUESTION AND CONFIRM MEDICATION ORDER FOR NEOMYCIN. PHARMACY TO HAVE ME CALL AND CONFIRM WITH MD DIE WELDER. RETURNED CALL FROM RAKESH AND STATED TO ONLY GIVE THE 2100 AND 2200 DOSE AND TO NOT WORRY ABOUT THE ONE FOR 1400 04/23/17. PHARMACY CALLED AND ETHEL TO FIX MEDICATION.
--- NOTE | 2017-05-22 20:55 | NUR ---
SHIFT ASSESSMENT COMPLETED. NIGHT MEDS GIVEN WITH NO PROBLEMS. NO NEEDS VOICED. WILL MONITOR. SIDE RAILS X 2. BED LOW. CALL LIGHT IN REACH.
--- NOTE | 2017-05-22 22:50 | NUR ---
PRBC'S STARTED AT THIS TIME. VSS. WILL MONITOR. SIDE RAILS X 2. BED LOW. CALL LIGHT IN REACH.
--- NOTE | 2017-05-22 23:05 | NUR ---
PT W/O REACTION TO TRANSFUSION. VSS. WILL MONITOR. SIDE RAILS X 2. BED LOW. CALL LIGHT IN REACH.
--- NOTE | 2017-05-22 23:20 | NUR ---
PT STILL W/O REACTION AT THIS TIME. VSS. WILL MONITOR. SIDE RAILS X 2. BED LOW. CALL LIGHT IN REACH.
[2017-05-23] VITALS (13 sets, daily range): BP systolic 106–143; BP diastolic 62–91
--- NOTE | 2017-05-23 01:05 | NUR ---
TRANSFUSION COMPLETE AT THIS TIME AND LINE FLUSHING. PT REMAIND W/O REACTION. VSS. SIDE RAILS X 2. BED LOW. CALL LIGHT IN REACH.
[2017-05-23 04:57] LABS: BASOPHILS 1.4 % (0-2); EOSINOPHILS 1.8 % (0-7); HEMATOCRIT 29.1 % (42.0-54.0); HEMOGLOBIN 9.8 g/dL (13.5-17.5); IMMATURE GRANULOCYTES 0.2 % (0-5); LYMPHOCYTES 20.8 % (15-50); MCH 29.1 pg (26.0-34.0); MCHC 33.7 g/dL (31.0-37.0); MCV 86.4 fL (80.0-100.0); MEAN PLATELET VOLUME 12.2 fL (7.4-10.4); MONOCYTES 12.2 % (2-11); NEUTROPHILS 63.6 % (40-80); PLATELET COUNT 164 10x3/uL (130-400); RBC 3.37 10x6/uL (4.20-6.10); RDW 14.8 % (11.5-14.5); WBC 4.4 10x3/uL (4.8-10.8)
[2017-05-23 05:05] LABS: CALC OSMOLALITY 282 mosm/kg (275-300); CALCIUM 7.4 mg/dL (8.5-10.1); CARBON DIOXIDE 24.6 mmol/L (21.0-32.0); CHLORIDE - SERUM 111 mmol/L (98-107); CREATININE - SERUM 0.8 mg/dL (0.6-1.3); GLUCOSE 120 mg/dL (74-106); POTASSIUM - SERUM 3.3 mmol/L (3.5-5.1); SODIUM 142 mmol/L (136-145); eGFR NON AFRICAN AMERICAN > 90 mL/min (90-120)
[2017-05-23 05:07] LABS: INR 1.64 (0.85-1.17); PROTIME 19.4 SECONDS (11.6-15.0)
[2017-05-23 05:20] LABS: UREA NITROGEN 10 mg/dL (7-18)
--- NOTE | 2017-05-23 09:39 | NUR ---
DRAIN IN PLACE RT. SIDE OF ABDOMEN. REMOVED DURING SURGERY.
--- NOTE | 2017-05-23 10:54 | NUR ---
PT RETURNED FROM SURGERY. AAOX4. RATING CURRENT PAIN IN ABD 5/10. SMALL INCISION SITE TO RLQ. DRESSING CDI. BOWEL SOUNDS HYPOACTIVE X4 QUADS. ABD ROUND AND TENDER TO PALPATION. PIV TO R WRIST RECONNECTED TO IVF. DILAUDID SSIS ARCHITECT INTIATED. PT ABLE TO RETURN DEMONSTRATION. REPORTS A DECREASE IN PAIN TO 4/10 IN ABD. FAMILY AT BEDSIDE. IV ABX STARTED. BED LOW, CALL LIGHT IN REACH, DENIES NEEDS. CPOC.
--- NOTE | 2017-05-23 11:37 | NUR ---
PATIENT IN BED WITH EYES CLOSED RESTING QUIETLY. IV INTACT. CALL LIGHT WITHIN REACH.
[2017-05-23 11:55] LABS: HEMATOCRIT 30.2 % (42.0-54.0); HEMOGLOBIN 10.3 g/dL (13.5-17.5)
[2017-05-23 16:42] LABS: HEMATOCRIT 32.5 % (42.0-54.0); HEMOGLOBIN 11.1 g/dL (13.5-17.5)
--- NOTE | 2017-05-23 22:14 | NUR ---
REC'D LYING IN BED, ALERT AND ORIENTED X4. DENIED PAIN AT THIS TIME. DENIED NEEDS AT THIS TIME. INSTRUCTED TO CALL IF NEEDED ANYTHING, VERBLAIZED UNDERSTANDING. NO DISTRESS NOTED. WILL ADMIN MEDS PRESCRIBED. BED LOW, LOCKED, CALL LIGHT IN REACH. WILL CONT TO MONITOR.
[2017-05-23 22:57] LABS: HEMATOCRIT 28.4 % (42.0-54.0); HEMOGLOBIN 9.6 g/dL (13.5-17.5)
[2017-05-24] VITALS: BP 110/75
--- NOTE | 2017-05-24 02:45 | NUR ---
PRBC'S STARTED AT THIS TIME. VSS. WILL MONITOR. SIDE RAILS X 2. BED LOW. CALL LIGHT IN REACH.
--- NOTE | 2017-05-24 06:00 | NUR ---
BLOOD FINISHED AT 0545. NO DISTRESS NOTED. WILL CONT TO MONITOR,
[2017-05-24 06:41] LABS: BASOPHILS 0.5 % (0-2); HEMATOCRIT 30.2 % (42.0-54.0); HEMOGLOBIN 10.1 g/dL (13.5-17.5); IMMATURE GRANULOCYTES 0.3 % (0-5); MCH 29.4 pg (26.0-34.0); MCHC 33.4 g/dL (31.0-37.0); MONOCYTES 11.2 % (2-11); PLATELET COUNT 152 10x3/uL (130-400); RBC 3.43 10x6/uL (4.20-6.10); RDW 15.2 % (11.5-14.5)
[2017-05-24 06:42] LABS: WBC 7.3 10x3/uL (4.8-10.8)
--- NOTE | 2017-05-24 06:57 | NUR ---
REPORT RECEIVED, ASSUMED CARE OF PT. PT IN BED, WATCHING TV AT THIS TIME. R WRIST IV INFUSING ORDERED, DRSG C/D/I. NO COMPLAINTS AT THIS TIME. BED IN LOWEST POSITION, SIDE RAILS UP X 2, CALL LIGHT WITHIN REACH.
[2017-05-24 07:09] LABS: CALC OSMOLALITY 274 mosm/kg (275-300); CALCIUM 7.3 mg/dL (8.5-10.1); CARBON DIOXIDE 25.8 mmol/L (21.0-32.0); CHLORIDE - SERUM 106 mmol/L (98-107); CREATININE - SERUM 0.8 mg/dL (0.6-1.3); GLUCOSE 106 mg/dL (74-106); MAGNESIUM - SERUM 1.6 mg/dL (1.8-2.4); PHOSPHOROUS 2.1 mg/dL (2.5-4.9); POTASSIUM - SERUM 3.5 mmol/L (3.5-5.1); SODIUM 138 mmol/L (136-145); UREA NITROGEN 10 mg/dL (7-18); eGFR NON AFRICAN AMERICAN > 90 mL/min (90-120)
[2017-05-24 08:14] VITALS: BP 126/79
[2017-05-24 11:11] LABS: HEMOGLOBIN 10.1 g/dL (13.5-17.5)
[2017-05-24 12:45] VITALS: BP 124/68
--- NOTE | 2017-05-24 12:49 | NUR ---
NUTRITION F/U CHART REVIEWED, PT VISIT. REMAINS ON CLEAR LIQUID DIET. NOT DRINKING MUCH OF ENSURE CLEAR. MOSTLY BROTH. WILL MONITOR DIET ADVANCEMENT, PO INTAKE. RD FOLLOWING
[2017-05-24 15:57] LABS: APPEARANCE CLEAR (CLEAR); BILIRUBIN NEGATIVE (NEGATIVE); COLOR YELLOW (YELLOW); GLUCOSE NEGATIVE (NEGATIVE); KETONE NEGATIVE (NEGATIVE); NITRITE NEGATIVE (NEGATIVE); PROTEIN NEGATIVE (NEGATIVE); SPECIFIC GRAVITY 1.015 (1.005-1.020); UROBILINOGEN NORMAL (NORMAL)
[2017-05-24 16:25] VITALS: BP 123/70
[2017-05-24 17:50] LABS: HEMATOCRIT 34.5 % (42.0-54.0); HEMOGLOBIN 11.5 g/dL (13.5-17.5)
[2017-05-24 20:00] VITALS: BP 136/83
[2017-05-24 23:03] LABS: HEMATOCRIT 34.5 % (42.0-54.0); HEMOGLOBIN 11.6 g/dL (13.5-17.5)
[2017-05-25] VITALS: BP 105/64
[2017-05-25 04:00] VITALS: BP 104/67
[2017-05-25 05:41] LABS: BASOPHILS 0.2 % (0-2); EOSINOPHILS 0.5 % (0-7); HEMOGLOBIN 10.7 g/dL (13.5-17.5); IMMATURE GRANULOCYTES 0.2 % (0-5); LYMPHOCYTES 7.3 % (15-50); MCH 30.1 pg (26.0-34.0); MCHC 34.5 g/dL (31.0-37.0); MCV 87.1 fL (80.0-100.0); MEAN PLATELET VOLUME 12.6 fL (7.4-10.4); MONOCYTES 9.4 % (2-11); NEUTROPHILS 82.4 % (40-80); PLATELET COUNT 173 10x3/uL (130-400); RBC 3.56 10x6/uL (4.20-6.10); RDW 15.2 % (11.5-14.5); WBC 8.6 10x3/uL (4.8-10.8)
[2017-05-25 06:07] LABS: CALC OSMOLALITY 278 mosm/kg (275-300); CALCIUM 7.6 mg/dL (8.5-10.1); CARBON DIOXIDE 27.1 mmol/L (21.0-32.0); CHLORIDE - SERUM 104 mmol/L (98-107); CREATININE - SERUM 0.9 mg/dL (0.6-1.3); GLUCOSE 147 mg/dL (74-106); POTASSIUM - SERUM 3.2 mmol/L (3.5-5.1); SODIUM 138 mmol/L (136-145); eGFR NON AFRICAN AMERICAN 89 mL/min (90-120)
[2017-05-25 06:11] LABS: INR 1.28 (0.85-1.17); PROTIME 15.9 SECONDS (11.6-15.0)
[2017-05-25 06:22] LABS: UREA NITROGEN 13 mg/dL (7-18)
--- NOTE | 2017-05-25 07:00 | NUR ---
REPORT RECEIVED, ASSUMED CARE OF PT. PT RESTING, NO NEEDS VOICED AT THIS TIME. R WRIST IV INFUSING ORDERED. BED IN LOWEST POSTIION, SIDE RAILS UP X 2, CALL LIGHT WITHIN REACH.
[2017-05-25 08:07] VITALS: BP 120/83
--- NOTE | 2017-05-25 08:17 | NUR ---
PT LEFT FLOOR WITH X-RAY
--- NOTE | 2017-05-25 09:49 | CN ---
PATIENT NAME:ADAM WINTER MEDICAL RECORD: [id number] : 46 LOCATION:D.MS [facility] ADMIT DATE: 05/21/17 ACCOUNT: [id number] CONSULTING PHYSICIAN: ERIKA CAMERON MD REFERRING PHYSICIAN: DUARTE CASTAÑEDA MD DATE OF CONSULTATION: 05/21/2017 This is a consultation note addendum. Gastroenterology Consultation CHIEF COMPLAINT: Bleeding. HISTORY OF PRESENT ILLNESS: I received a call from Mr. Winter earlier in the day. He states that he was bleeding. It was diaphoretic. He was not feeling well. I told him it sounds like he needed to get in to see his primary care physician. He was able to get in to see Dr. Castañeda. The patient has been having diarrheal stools with blood. He was very weak. He was admitted to the hospital. He was found to have an elevated INR. I was also somewhat concerned that the diarrhea might be due to Clostridium difficile colitis, but that does not appear to be the case. Dr. Alexander has been consulted. I have discussed the patient with Dr. Alexander and I would recommend a lower endoscopy. It would be nice to get some tissue to confirm the diagnosis of Crohn's disease. Nothing aggravates. Nothing alleviates. Symptoms are of moderate severity. He is not complaining of any abdominal pain. This is a consultation note addendum. For the typed portion of the consult note including the past medical and surgical history, allergies, current medications as well as family history, please see the chart. REVIEW OF SYSTEMS: No nausea, no vomiting, no fever, no chills, no chest pain, no shortness of breath. Positive for fatigue. REVIEW OF SYSTEMS: Negative other than as is described above. PHYSICAL EXAMINATION: GENERAL: The patient appears acutely ill. He does not appear chronically ill. VITAL SIGNS: Reviewed. EARS: External ears appear normal. EYES: Extraocular movements are intact. NECK: Trachea is midline. CHEST: No intercostal retractions. PULMONARY: Nonlabored, no stridor. ABDOMEN: No peritonitis with movement. EXTREMITIES: No peripheral cyanosis. INTEGUMENT: No rash, no ulcerations. PSYCHIATRIC: Normal affect. NEUROLOGIC: Nonfocal, no lethargy. The patient answers questions appropriately, moves all extremities well. BACK: No thoracic kyphosis. LYMPHATICS: No lymphangitic streaking of the exposed extremities. IMPRESSION: Lower gastrointestinal bleeding likely due to the elevated INR. Possible Crohn's disease. CONSULT REPORT [id number] ADAM WINTER PLAN: Reversal of the anticoagulant effect to some degree. Colonoscopy. TRANSINT:[id number] Voice Confirmation ID: [id number] DOCUMENT ID: [id number] ERIKA CAMERON MD at 0949 CC: [id number] DICTATION DATE: 05/22/17 162 [employer]NON FIRE DIRECTION SPECIALIST: 05/22/17 2221 ADM IN [facility] [address] [place] [address]
--- NOTE | 2017-05-25 09:49 | PN ---
PATIENT:ADAM THOMAS MEDICAL RECORD: [id number] LOCATION:D.MS [facility] ADMISSION DATE: 05/21/17 PROGRESS NOTE DATE OF SERVICE: 05/22/2017 CHIEF COMPLAINT: Better. SUBJECTIVE: I reviewed his endoscopic photos with Dr. Alexander. The patient's colonic mucosa appears normal except around the appendiceal orifice, where it is markedly abnormal. The patient has an ileum that appears normal as well. The patient is going to require an appendectomy, but also resection of the portion of the ileum where the enterocutaneous fistula is. The patient is not complaining of any pain. His INR is being corrected with the administration of vitamin K as well as FFP. For the typed portion of the progress note, please see the chart, this will include the past medical and surgical history, allergies, social history, as well current medications. REVIEW OF SYSTEMS: No nausea, no vomiting, no fever, no chills, no chest pain, no shortness of breath. PHYSICAL EXAMINATION: GENERAL: The patient does not appear acutely ill. He does not appear chronically ill. VITAL SIGNS: Reviewed. EARS: External ears appear normal. EYES: Extraocular movements are intact. NECK: Trachea is midline. CHEST: No intercostal retractions. PULMONARY: Nonlabored, no stridor. ABDOMEN: No peritonitis with movement. EXTREMITIES: No peripheral cyanosis. INTEGUMENT: No rash. No ulcerations. PSYCHIATRIC: Normal affect. NEUROLOGIC: Nonfocal, no lethargy. The patient answers questions appropriately, moves all extremities well. BACK: No thoracic kyphosis. IMPRESSION: 1. Enterocutaneous fistula. 2. The diagnosis of Crohn disease now is unlikely. 3. Appendicitis with phlegmon and abscess, improving. PLAN: Hand-assisted right hemicolectomy. TRANSINT:[id number] Voice Confirmation ID: [id number] DOCUMENT ID: [id number] PROGRESS NOTE [id number] ADAM THOMAS ROBERT MD at 0949 CC: [id number] DICTATION DATE: 05/22/17 1632 ASSISTANT GUEST SERVICES MANAGER: 05/23/17 [address] [facility] [address] [place] [address]
[2017-05-25 10:52] LABS: HEMATOCRIT 32.7 % (42.0-54.0); HEMOGLOBIN 11.1 g/dL (13.5-17.5)
[2017-05-25 11:55] VITALS: BP 123/73
--- NOTE | 2017-05-25 14:55 | NUR ---
Patient Name: RAJENDRA CANTU Admission Status: ER Accout number: [id number] Admission Date: 05-25-2017 : 02-23-1924 Admission Diagnosis: Attending: WENDY VALDES Current LOS: 1 Anticipated DC Date: 05-28-2017 Planned Disposition: Home Primary Insurance: MEDICARE A & B Discharge Planning Comments: CM MET WITH PATIENT REGARDING D/C NEEDS AND PLANS. PATIENT STATED SHE LIVES ALONE AND HER DAUGHTER LIVES IN THE [facility] A FEW MILES FROM HER. PATIENT STATED SOMEONE WOULD DRIVE HER HOME AT DISCHARGE (DOES NOT KNOW WHO AT THIS TIME).PATIENT STATED SHE IS INDEPENDENT WITH HER CARE AND HAS NO DME AT HOME. PATIENTS PCP IS DR. VALDES AND PHARMACY IS [facility] AT [facility]. CM WILL CONTINUE TO FOLLOW PATIENT WITH D/C NEEDS AND PLANS. PCP DR[facility] [phone] AJAY (DAUGHTER) [phone] Delivery Truck Driver Heavy: Ekta Ventura Is the patient Alert and Oriented? Yes 0 * How many steps to enter\exit or inside your home? 0 0 * PCP DR. VALDES 0 * Pharmacy [facility] 0 * Preadmission Environment Home Alone 0 * ADLs Independent 0 * Equipment None 0 * List name and contact numbers for known caregivers / representatives who currently or will assist patient after discharge: AJAY (DAUGHTER) [phone] 0 * Additional services required to return to the preadmission environment? Yes 0 * Can the patient safely return to the preadmission environment? Yes 0 * Has this patient been hospitalized within the prior 30 days at any hospital? Yes 0 Grand Total: 0
[2017-05-25 16:00] VITALS: BP 128/83
[2017-05-25 17:04] LABS: HEMATOCRIT 30.9 % (42.0-54.0); HEMOGLOBIN 10.4 g/dL (13.5-17.5)
--- NOTE | 2017-05-25 17:54 | NUR ---
R WRIST IV INFILTRATED, RE-SITED TO L [facility].
[2017-05-25 20:00] VITALS: BP 143/81
[2017-05-25 23:34] LABS: HEMATOCRIT 30.5 % (42.0-54.0); HEMOGLOBIN 10.3 g/dL (13.5-17.5)
[2017-05-26] VITALS (7 sets, daily range): BP systolic 118–140; BP diastolic 78–90
[2017-05-26 04:50] LABS: BASOPHILS 0.3 % (0-2); HEMATOCRIT 31.3 % (42.0-54.0); HEMOGLOBIN 10.4 g/dL (13.5-17.5); IMMATURE GRANULOCYTES 0.1 % (0-5); LYMPHOCYTES 9.5 % (15-50); MCH 29.1 pg (26.0-34.0); MCHC 33.2 g/dL (31.0-37.0); MCV 87.4 fL (80.0-100.0); MEAN PLATELET VOLUME 12.7 fL (7.4-10.4); MONOCYTES 10.5 % (2-11); NEUTROPHILS 78.6 % (40-80); PLATELET COUNT 178 10x3/uL (130-400); RBC 3.58 10x6/uL (4.20-6.10); RDW 15.2 % (11.5-14.5); WBC 7.8 10x3/uL (4.8-10.8)
[2017-05-26 05:13] LABS: CALC OSMOLALITY 285 mosm/kg (275-300); CALCIUM 8.3 mg/dL (8.5-10.1); CHLORIDE - SERUM 107 mmol/L (98-107); CREATININE - SERUM 0.9 mg/dL (0.6-1.3); GLUCOSE 123 mg/dL (74-106); MAGNESIUM - SERUM 1.7 mg/dL (1.8-2.4); PHOSPHOROUS 2.2 mg/dL (2.5-4.9); POTASSIUM - SERUM 3.1 mmol/L (3.5-5.1); SODIUM 142 mmol/L (136-145); eGFR NON AFRICAN AMERICAN 89 mL/min (90-120)
[2017-05-26 05:14] LABS: UREA NITROGEN 18 mg/dL (7-18)
--- NOTE | 2017-05-26 08:45 | NUR ---
PATIENT IN BED WITH IV INTACT. NO COMPLAINTS OF PAIN. STATED PASSING GAS AND HAVING BMS. STOMACH DISTENDED BUT SOFT. BOWEL SOUNDS AUSCULTATED. TOLERATING CLEAR LIQUIDS. DENIES NEEDS AT THIS TIME. CALL LIGHTW ITHIN REACH.
--- NOTE | 2017-05-26 18:46 | NUR ---
PATIENT IN BED WITH NO COMPLAINTS AT THIS TIME. IV INTACT. CALL LIGHT WITHIN REACH.
--- NOTE | 2017-05-26 22:00 | NUR ---
PT ALERT & ORIENTED. SITTING UP IN BED WATCHING TV. HAD LOOSE BM. ASSESSMENT PER FLOW-SHEET. CHANGED IV TUBING. NO NEEDS. WILL CONTINUE TO MONITOR.
[2017-05-27 04:00] VITALS: BP 142/77
[2017-05-27 05:38] LABS: BASOPHILS 0.7 % (0-2); EOSINOPHILS 3.6 % (0-7); HEMOGLOBIN 10.3 g/dL (13.5-17.5); LYMPHOCYTES 15.1 % (15-50); MCH 28.9 pg (26.0-34.0); MCHC 33.2 g/dL (31.0-37.0); MCV 87.1 fL (80.0-100.0); MEAN PLATELET VOLUME 11.9 fL (7.4-10.4); NEUTROPHILS 67.6 % (40-80); PLATELET COUNT 185 10x3/uL (130-400); RBC 3.56 10x6/uL (4.20-6.10); RDW 15.1 % (11.5-14.5); WBC 5.9 10x3/uL (4.8-10.8)
[2017-05-27 06:13] LABS: ALBUMIN 2.3 g/dL (3.4-5.0); ALKALINE PHOSPHATASE 51 U/L (46-116); ALT (SGPT) 11 U/L (10-68); BILIRUBIN - TOTAL 0.66 mg/dL (0.2-1.3); CALC OSMOLALITY 283 mosm/kg (275-300); CALCIUM 7.4 mg/dL (8.5-10.1); CARBON DIOXIDE 26.2 mmol/L (21.0-32.0); CHLORIDE - SERUM 107 mmol/L (98-107); CREATININE - SERUM 0.8 mg/dL (0.6-1.3); GLUCOSE 118 mg/dL (74-106); PROTEIN - SERUM 5.4 g/dL (6.4-8.2); SODIUM 142 mmol/L (136-145); UREA NITROGEN 13 mg/dL (7-18); eGFR NON AFRICAN AMERICAN > 90 mL/min (90-120)
--- NOTE | 2017-05-27 07:00 | NUR ---
REPORT RECIEVED ASSUMED CARE. PATIENT IN BED WITH IV INTACT. NO COMPLAINTS AT THIS TIME. IV INTACT. CALL LIGHT WITHIN REACH.
[2017-05-27 08:10] VITALS: BP 173/96
--- NOTE | 2017-05-27 09:30 | NUR ---
PATIENT IV RED AND HURTING. STOPPED AND SALINE LOCKED. DOES NOT WANT ANOTHER IV AT THIS TIME BECAUSE POSSIBLY GOING HOME TODAY. WILL SPEAK WITH PHYSICIAN. CALL LIGHT WITHIN REACH.
[2017-05-27 11:52] VITALS: BP 140/98
--- NOTE | 2017-05-27 12:30 | NUR ---
PATIENT TOLERATED FULL LIQUID DIET. NO NAUSEA OR GI PROBLEMS AT THIS TIME. NO COMPLAINTS. CALL LIGHT WITHIN REACH.
--- NOTE | 2017-05-27 15:05 | NUR ---
SPOKE WITH DR. LERNER ABOUT PATIENT GOING HOME. STATED HE WANTED TO WAIT A LITTLE LONGER TO SEE IF PATIENT BP GOES DOWN MORE. OK TO LEAVE IV OUT. PATIENT IV REMOVED WITH CATH TIP INTACT. CALL LIGHT WITHIN REACH.
[2017-05-27 16:13] VITALS: BP 150/100
--- NOTE | 2017-05-27 18:10 | NUR ---
PATIENT TOLERATED REGULAR DIET WITH NO PROBLEMS AT THIS TIME. BP NOW 154/83. WILL WAIT TILL AM TO SEE IF DR. CASTAÑEDA WANTS DC. PATIENT STATED HAVING NO PAIN OR NAUSEA. CALL LIGHT WITHIN REACH.
[2017-05-27 21:22] VITALS: BP 148/99
[2017-05-28] VITALS: BP 110/69
[2017-05-28 04:00] VITALS: BP 149/99
[2017-05-28 08:00] VITALS: BP 141/97
--- NOTE | 2017-05-28 09:09 | NUR ---
Patient being discharged home today, refuses HH and states he has everything he needs. CM will continue to assist as needed with discharge planning needs
--- NOTE | 2017-05-28 09:47 | NUR ---
PT AWAKE AND ALERT. REPORTS NO PAIN AT THIS TIME. ON ROOM AIR. NO IV. WAITING TO GO HOME. REPORTS HAVING LOOSE BM. UP AND ABOUT IN ROOM. DENIES OTHER NEEDS AT THIS TIME.
--- NOTE | 2017-05-28 09:57 | NUR ---
PT BEING DISCHARGED HOME. DISCHARGE INSTRUCTIONS GIVEN AND REVIEWED WITH PATIENT. PT WHEELED DOWN IN A WHEELCHAIR BY VOLUNTEER. PT HAS CALLED A TAXI. BELONGINGS SENT HOME WITH PATIENT.
--- NOTE | 2017-05-31 14:00 | OP ---
PATIENT NAME: ADAM THOMAS MEDICAL RECORD: [id number] :46 LOCATION:D.MS [facility] ADMISSION DATE:05/21/17 SURGEON: AUGIE CAMERON MD DATE OF OPERATION: 05/23/2017 PREOPERATIVE DIAGNOSES: 1. Acute appendicitis with peritonitis and abscess. 2. Enterocutaneous fistula. POSTOPERATIVE DIAGNOSES: 1. Acute appendicitis with peritonitis and abscess. 2. Enterocutaneous fistula. PROCEDURE: 1. Open appendectomy. 2. Open repair of enterocutaneous fistula. SURGEON: Augie Cameron MD LOAN CLERK: None. BLOOD LOSS: Minimal. ANESTHESIA: General. COMPLICATIONS: None. The risks, possible complications and alternatives to procedure were explained to the patient. He elects to proceed. OPERATIVE COURSE: The patient was conveyed to the operating room electively on 05/23/2017. General anesthesia was induced by anesthesia staff. The abdomen was sterilely prepped and draped. The right-sided drain was removed in its entirety. A transverse incision was accomplished in the right side of the abdomen. I dissected down through the skin and subcutaneous tissue. The external oblique aponeurosis was opened along the direction of its fibers. I bluntly dissected down through the internal oblique and transversus abdominis muscle layers. The Agustin retractor was placed. It appeared that I could perform this procedure without any laparoscopic assistance, so I did not place additional trocars. I incised along the right white line of Toldt. I mobilized the cecum. I bluntly dissected down into what was the abscess cavity. No purulence was identified. There was a portion of the small bowel stuck to the mesentery. I freed this up. I felt that this was probably the enterocutaneous fistula. I could not identify a definite full thickness defect; however, I oversewed this area by imbricating with some 3-0 Vicryl sutures. I then performed some additional blunt dissection and dissected another piece of small bowel off of the mesentery and there was a full thickness defect here. After my blunt dissection, I noticed a full thickness defect in the small bowel. Therefore, this was a true enterocutaneous fistula as the small bowel had been stuck to the abscess cavity. Then the drain was placed. I then completed the enterocutaneous fistula. Once I freed up this portion of small bowel, I tangentially stapled across the opening of the small bowel with a TA 30 stapler. I then imbricated the staple line with interrupted 3-0 Vicryl sutures. I bluntly dissected the appendix off of the underlying retroperitoneum. A OPERATIVE REPORT [id number] ADAM THOMAS window was created in the mesoappendix. I took down the mesoappendix with an EnSeal device. I then stapled across the top of the appendix with a TA 30 stapler. I then amputated the appendix distal to this. I then oversewed the staple line with horizontal mattress #1 Vicryl. I irrigated in the right lower quadrant. There was no bleeding. I reperitonealized with a running #1 Vicryl. The transversus abdominis and internal oblique muscles were approximated with interrupted #1 Vicryls. The external oblique aponeurosis was closed with running #1 Vicryls. The subdermis was approximated with interrupted 3-0 Vicryls. The skin was approximated with a running intracuticular 3-0 Vicryl. Benzoin and Steri-Strips were applied. The patient was then extubated and conveyed to post-anesthesia care unit where he was in stable condition. TRANSINT:[id number] Voice Confirmation ID: [id number] DOCUMENT ID: [id number] AUGIE CAMERON MD at 1400 CC: [id number] DICTATION DATE: 05/29/17 1235 MARKETING ACCOUNT EXECUTIVE: 05/29/17 1335 DIS IN 05/28/17 [address] [id number] [place] [address]
== END 2017-05-28 11:03 | disposition home or self-care (01) | DRG 329 ==
LOC: D.MS 10:30
PROVIDERS: Family Medicine; Internal Medicine Gastroenterology; Surgery; ADMIT Family Medicine
PROC: 0DJD8ZZ Inspection of Lower Intestinal Tract, Via Natural or Artificial Opening Endoscopic (ICD-10-PCS; principal; 2017-05-22 08:00)
PROC: 0DB80ZZ Excision of Small Intestine, Open Approach (ICD-10-PCS; 2017-05-23)
PROC: 0DTJ0ZZ Resection of Appendix, Open Approach (ICD-10-PCS; 2017-05-23)
DX: K63.2 Fistula of intestine (principal); K35.3 Acute appendicitis with localized peritonitis; K56.7 Ileus, unspecified; T45.515A Adverse effect of anticoagulants, initial encounter; D12.0 Benign neoplasm of cecum; K64.8 Other hemorrhoids; I48.2 Chronic atrial fibrillation; Z79.01 Long term (current) use of anticoagulants; E78.5 Hyperlipidemia, unspecified